=== PATIENT | male | born 1995 ===

== ENCOUNTER 2019-05-08 18:20 | Emergency (ER) | payer SELFPAY ==
[~2019-05-08] VITALS: Ht 182.9 cm; Wt 123.6 kg
[2019-05-08] MEDS ORDERED: ASPIRIN 325 MG TABLET PO ONE (18:45)
[2019-05-08] MEDS ORDERED: LIDO:MAALOX 1:1 20 ML SINGLE DOSE. SWSW ONE (18:45)
[2019-05-08 18:59] LABS: BASO # 0.1 x10^3/uL (0.0-0.2); BASO % 0 % (0-3); EOS % 0 % (0-3); HEMATOCRIT 46.9 % (39.0-53.0); HEMOGLOBIN 16.4 g/dL (13.0-17.5); LYMPH # 2.1 x10^3/uL (1.0-4.8); LYMPH % 12 % (24-48); MEAN CORPUSCULAR HEMOGLOBIN 30 pg (25-35); MEAN CORPUSCULAR HGB CONC 35 g/dL (31-37); MEAN CORPUSCULAR VOLUME 86 fL (79-100); MONO # 1.5 x10^3/uL (0.0-1.1); MONO % 9 % (0-9); NEUT # 13.3 x10^3/uL (1.8-7.7); NEUT % 78 % (31-73); PLATELET COUNT 355 x10^3/uL (140-400); RED BLOOD COUNT 5.44 x10^6/uL (4.30-5.70); RED CELL DISTRIBUTION WIDTH 13.4 % (11.5-14.5)
[2019-05-08 19:00] LABS: BILIRUBIN,URINE NEGATIVE (NEG); CLARITY,URINE CLOUDY; COLOR,URINE YELLOW; NITRITE,URINE NEGATIVE (NEG); PROTEIN,URINE 30 mg/dL (NEG-TRACE); UROBILINOGEN,URINE 0.2 mg/dL (0.2 mg/dL)
[2019-05-08 19:07] LABS: BARBITURATES NEG (NEG); BENZODIAZEPINES NEG (NEG); CANNABINOIDS POS (NEG); COCAINE NEG (NEG); METHADONE NEG (NEG); OPIATES NEG (NEG); PHENCYCLIDINE NEG (NEG)
[2019-05-08 19:10] LABS: BACTERIA,URINE FEW /HPF (0-FEW); RBC,URINE 0 /HPF (0-2); SQUAMOUS EPITHELIAL CELL,UR OCC /LPF
[2019-05-08 19:11] LABS: CALCIUM 8.8 mg/dL (8.5-10.1); CREATININE 1.1 mg/dL (0.7-1.3); GFR 83.7; POTASSIUM 4.1 mmol/L (3.5-5.1)
--- NOTE | 2019-05-08 19:13 | RAD ---
Single view chest dated 05/08/2019: No comparison available. Clinical Indication: Chest pain. Findings: Single upright portable exam of the chest was performed. Heart size and mediastinal contours are within normal limits given technique. The lungs are clear without evidence of focal consolidation. Vascular interstitium is within normal limits. Impression:: Negative portable chest. Electronically signed by: Jose Jiang MD (05/08/2019 7:10 PM) [id number]
[2019-05-08 19:16] LABS: SALIC < 2.8 mg/dL (2.8-20.0)
[2019-05-08 19:16] LABS: AMPHETAMINE/METHAMPHETAMINE NEG (NEG)
[2019-05-08 19:17] LABS: ACETAMIN < 2 mcg/ml (10-30); ALBUMIN 3.5 g/dL (3.4-5.0); ALBUMIN/GLOBULIN RATIO 1.1 (1.0-1.7); ETHANOL < 10 mg/dL (0-10); MAGNESIUM 1.9 mg/dL (1.8-2.4); TOTAL BILIRUBIN 0.3 mg/dL (0.2-1.0); TOTAL PROTEIN 6.6 g/dL (6.4-8.2)
[2019-05-08] MEDS ORDERED: IOHEXOL 300 MG/ML 100ML VIAL. IV ONE (19:30)
[2019-05-08] MEDS ORDERED: CONTRAST GIVEN. MC PRN (19:30)
[2019-05-08 19:51] LABS: % BANDS 1 % (0-9); % EOS 1 % (0-5)
[2019-05-08 19:52] LABS: % LYMPHS 13 % (24-48); % MONOS 8 % (0-10); % SEGS 77 % (35-66); PLT ESTIMATE ADEQUATE (ADEQUATE)
--- NOTE | 2019-05-08 20:07 | RAD ---
INDICATION: Abdomen pain COMPARISON: None. TECHNIQUE: Axial CT images obtained through the abdomen and pelvis with contrast. One or more of the following individualized dose reduction techniques were utilized for this examination: 1. Automated exposure control; 2. Adjustment of the mA and/or kV according to patient size; 3. Use of iterative reconstruction technique. FINDINGS: Partially visualized nodular opacity right lung base measuring 6 mm but only partially seen and therefore likely not accurate measurement. Abdominal aorta not aneurysmal. Fat-containing umbilical hernia. No intrahepatic bile duct dilation. No peripancreatic fluid collection. Spleen unremarkable. No hydronephrosis. Urinary bladder is decompressed. The descending colon is located on the left side of the abdomen with the appendix seen within the pelvis without adjacent inflammatory changes. This could be secondary to a congenital rotation anomaly. IMPRESSION: * No evidence of bowel obstruction or appendicitis. * Partial visualization of a nodular opacity at the right lung base. Most commonly secondary to nodular atelectasis, infectious or inflammatory causes in a patient of this age. 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 No evidence of associated obstruction. Electronically signed by: Genaro Bernstein MD (05/08/2019 8:04 PM) [id number]
--- NOTE | 2019-05-08 20:57 | PHYS DOC ---
Past Medical History Past Medical History: No Pertinent History (JOSE PANTOJA APRN) Past Surgical History: No Surgical History (JOSE PANTOJA APRN) Smoking Status: Current Every Day Smoker Additional Information: 1 PPD Alcohol Use: None Social History Narrative: [employer]REET [employer]" (JOSE PANTOJA APRN) Attending Signature I have participated in the care of this patient and I have reviewed and agree with all pertinent clinical information above including history, exam, and recommendations. (SHERRY MONTGOMERY MD) Adult General Chief Complaint Chief Complaint: ABDOMINAL PAIN HPI HPI Patient is a 24 year old male with history of drug abuse who presents to the ED today complaining of 4 out of 10 generalized chest pain as well as generalized abdominal pain described as sharp and intermittent, symptoms began an hour after snorting street fentanyl. Patient reports this heartbeat is been chronic. Denies any exacerbating or relieving factors to his symptoms. He was at the [facility] when symptoms began (JOSE PANTOJA APRN) Review of Systems Review of Systems Constitutional: Denies fever or chills [] Eyes: Denies change in visual acuity, redness, or eye pain [] HENT: Denies nasal congestion or sore throat [] Respiratory: Denies cough or shortness of breath [] Cardiovascular: Reports chest pain GI: Reports abdominal pain, denies nausea, vomiting, bloody stools or diarrhea [] : Denies dysuria or hematuria [] Musculoskeletal: Denies back pain or joint pain [] Integument: Denies rash or skin lesions [] Neurologic: Denies headache, focal weakness or sensory changes [] All other systems were reviewed and found to be within normal limits, except as documented in this note. (JOSE PANTOJA APRN) Current Medications Current Medications Current Medications Medications (Trade) Dose Ordered Sig/Luz Elena Start Time Stop Time Status Last Admin Dose Admin Aspirin (Bee Aspirin) 325 mg 1X ONCE 05/08/19 18:45 05/08/19 18:46 DC 05/08/19 18:50 325 MG Info (CONTRAST GIVEN -- Rx MONITORING) 1 each PRN DAILY PRN 05/08/19 19:30 05/08/19 21:53 DC Iohexol (Omnipaque 300 Mg/ml) 75 ml 1X ONCE 05/08/19 19:30 05/08/19 19:31 DC 05/08/19 19:34 75 ML Multi-Ingredient Mouthwash/Gargle (Gi Cocktail) 20 ml 1X ONCE 05/08/19 18:45 05/08/19 18:46 DC 05/08/19 18:50 20 ML (SHERRY MONTGOMERY MD) Allergies Allergies Allergies Coded Allergies Type Severity Reaction Last Updated Verified No Known Drug Allergies 05/08/19 No (SHERRY MONTGOMERY MD) Physical Exam Physical Exam Constitutional: Well developed, well nourished, no acute distress, non-toxic appearance. [] HENT: Normocephalic, atraumatic, bilateral external ears normal, oropharynx moist, no oral exudates, nose normal. [] Eyes: PERRLA, EOMI, conjunctiva normal, no discharge. [] Neck: Normal range of motion, no tenderness, supple, no stridor. [] Cardiovascular:Heart rate regular rhythm, no murmur [] Lungs & Thorax: Bilateral breath sounds clear to auscultation [] Abdomen: Bowel sounds normal, soft, no tenderness, no masses, no pulsatile masses. [] Skin: Warm, dry, no erythema, no rash. [] Back: No tenderness, no CVA tenderness. [] Extremities: No tenderness, no cyanosis, no clubbing, ROM intact, no edema. [] Neurologic: Alert and oriented X 3, normal motor function, normal sensory function, no focal deficits noted. [] Psychologic: Affect normal, judgement normal, mood normal. [] (JOSE PANTOJA APRN) Current Patient Data Vital Signs Vital Signs Date Time Temp Pulse Resp B/P (MAP) Pulse Ox O2 Delivery O2 Flow Rate FiO2 05/08/19 21:44 102 24 140/93 (109) 97 Room Air 05/08/19 18:25 98.7 98.7 (SHERRY MONTGOMERY MD) Lab Values Laboratory Tests Test 05/08/19 18:30 05/08/19 18:50 White Blood Count 17.0 x10^3/uL (4.0-11.0) H Red Blood Count 5.44 x10^6/uL (4.30-5.70) Hemoglobin 16.4 g/dL (13.0-17.5) Hematocrit 46.9 % (39.0-53.0) Mean Corpuscular Volume 86 fL (79-100) Mean Corpuscular Hemoglobin 30 pg (25-35) Mean Corpuscular Hemoglobin Concent 35 g/dL (31-37) Red Cell Distribution Width 13.4 % (11.5-14.5) Platelet Count 355 x10^3/uL (140-400) Neutrophils (%) (Auto) 78 % (31-73) H Lymphocytes (%) (Auto) 12 % (24-48) L Monocytes (%) (Auto) 9 % (0-9) Eosinophils (%) (Auto) 0 % (0-3) Basophils (%) (Auto) 0 % (0-3) Neutrophils # (Auto) 13.3 x10^3/uL (1.8-7.7) H Lymphocytes # (Auto) 2.1 x10^3/uL (1.0-4.8) Monocytes # (Auto) 1.5 x10^3/uL (0.0-1.1) H Eosinophils # (Auto) 0.0 x10^3/uL (0.0-0.7) Basophils # (Auto) 0.1 x10^3/uL (0.0-0.2) Segmented Neutrophils % 77 % (35-66) H Band Neutrophils % 1 % (0-9) Lymphocytes % 13 % (24-48) L Monocytes % 8 % (0-10) Eosinophils % 1 % (0-5) Platelet Estimate Adequate (ADEQUATE) Sodium Level 142 mmol/L (136-145) Potassium Level 4.1 mmol/L (3.5-5.1) Chloride Level 103 mmol/L (98-107) Carbon Dioxide Level 29 mmol/L (21-32) Anion Gap 10 (6-14) Blood Urea Nitrogen 11 mg/dL (8-26) Creatinine 1.1 mg/dL (0.7-1.3) Estimated GFR (Cockcroft-Gault) 83.7 BUN/Creatinine Ratio 10 (6-20) Glucose Level 77 mg/dL (70-99) Calcium Level 8.8 mg/dL (8.5-10.1) Magnesium Level 1.9 mg/dL (1.8-2.4) Total Bilirubin 0.3 mg/dL (0.2-1.0) Aspartate Amino Transferase (AST) 18 U/L (15-37) Alanine Aminotransferase (ALT) 31 U/L (16-63) Alkaline Phosphatase 74 U/L (46-116) Creatine Kinase 136 U/L (39-308) Creatine Kinase MB (Mass) 0.6 ng/mL (0.0-3.6) Creatine Kinase MB Relative Index 0.4 % (0-4) Troponin I Quantitative < 0.017 ng/mL (0.000-0.055) YE-Hqu-Z-Type Natriuretic Peptide 45 pg/mL (0-124) Total Protein 6.6 g/dL (6.4-8.2) Albumin 3.5 g/dL (3.4-5.0) Albumin/Globulin Ratio 1.1 (1.0-1.7) Lipase 124 U/L (73-393) Thyroid Stimulating Hormone (TSH) 1.189 uIU/mL (0.358-3.74) Salicylates Level < 2.8 mg/dL (2.8-20.0) L Salicylate Last Dose Date Salicylate Last Dose Time Acetaminophen Level < 2 mcg/ml (10-30) L Acetaminophen Last Dose Date Acetaminophen Last Dose Time Ethyl Alcohol Level < 10 mg/dL (0-10) Urine Collection Type Unknown Urine Color Yellow Urine Clarity Cloudy Urine pH 6.0 (<5.0-8.0) Urine Specific [place] >=1.030 (1.000-1.030) Urine Protein 30 mg/dL (NEG-TRACE) Urine Glucose (UA) Negative mg/dL (NEG) Urine Ketones (Stick) Trace mg/dL (NEG) Urine Blood Negative (NEG) Urine Nitrite Negative (NEG) Urine Bilirubin Negative (NEG) Urine Urobilinogen Dipstick 0.2 mg/dL (0.2 mg/dL) Urine Leukocyte Esterase Small (NEG) Urine RBC 0 /HPF (0-2) Urine WBC 11-20 /HPF (0-4) Urine Squamous Epithelial Cells Occ /LPF Urine Bacteria Few /HPF (0-FEW) Urine Mucus Marked /LPF Urine Opiates Screen Neg (NEG) Urine Methadone Screen Neg (NEG) Urine Barbiturates Neg (NEG) Urine Phencyclidine Screen Neg (NEG) Urine Amphetamine/Methamphetamine Neg (NEG) Urine Benzodiazepines Screen Neg (NEG) Urine Cocaine Screen Neg (NEG) Urine Cannabinoids Screen Pos (NEG) Urine Ethyl Alcohol Neg (NEG) Laboratory Tests 05/08/19 18:30 Laboratory Tests 05/08/19 18:30 (SHERRY MONTGOMERY MD) EKG EKG [address] Montgomery sinus tachycardia HR 106 no STEMI[] (JOSE PANTOJA APRN) Radiology/Procedures Radiology/Procedures []PROCEDURE: CT ABD PELV W/ IV CONTRST ONLY INDICATION: Abdomen pain COMPARISON: None. TECHNIQUE: Axial CT images obtained through the abdomen and pelvis with contrast. One or more of the following individualized dose reduction techniques were utilized for this examination: 1. Automated exposure control; 2. Adjustment of the mA and/or kV according to patient size; 3. Use of iterative reconstruction technique. FINDINGS: Partially visualized nodular opacity right lung base measuring 6 mm but only partially seen and therefore likely not accurate measurement. Abdominal aorta not aneurysmal. Fat-containing umbilical hernia. No intrahepatic bile duct dilation. No peripancreatic fluid collection. Spleen unremarkable. No hydronephrosis. Urinary bladder is decompressed. The descending colon is located on the left side of the abdomen with the appendix seen within the pelvis without adjacent inflammatory changes. This could be secondary to a congenital rotation anomaly. IMPRESSION: * No evidence of bowel obstruction or appendicitis. * Partial visualization of a nodular opacity at the right lung base. Most commonly secondary to nodular atelectasis, infectious or inflammatory causes in a patient of this age. 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 No evidence of associated obstruction. Electronically signed by: Freya Bethea MD (05/08/2019 8:04 PM) [id number] DICTATED and SIGNED BY: FREYA BETHEA MD DATE: 05/08/192003 PROCEDURE: PORTABLE CHEST 1V Single view chest dated 05/08/2019: No comparison available. Clinical Indication: Chest pain. Findings: Single upright portable exam of the chest was performed. Heart size and mediastinal contours are within normal limits given technique. The lungs are clear without evidence of focal consolidation. Vascular interstitium is within normal limits. Impression:: Negative portable chest. Electronically signed by: Jose Jiang MD (05/08/2019 7:10 PM) [id number] DICTATED and SIGNED BY: JOSE JIANG MD DATE: 05/08/19 191 (JOSE PANTOJA APRN) Course & Med Decision Making Course & Med Decision Making Pertinent Labs and Imaging studies reviewed. (See chart for details) This is a 24-year-old male patient [place] be evaluated for chest pain and abdominal pain that began an hour after snorting street fentanyl. EKG noted for tachycardia with heart rate at 106. CBC with a WBC of 17.1, CMP with no acute findings, troponin is normal drug screen positive for marijuana only. It is questionable what patient has been using considering he has no opiates in his system. Noted for marijuana in his urine. Patient requesting help with drug use. Amaury from the PAT team came and talked to patient-he reports this patient spends at thousand dollars per week on street drugs for the last 1 year. He states after discussion with patient on contact with [facility], they will call patient tomorrow and set up a follow-up appointment. Patient was discharged to home. (JOSE PANTOJA APRN) Dragon Disclaimer Dragon Disclaimer This electronic medical record was generated, in whole or in part, using a voice recognition dictation system. (JOSE PANTOJA APRN) Departure Departure Impression: Primary Impression: Drug abuse Additional Impressions: Chest pain Abdominal pain Disposition: HOME, SELF-CARE Condition: STABLE Referrals: NO PCP (PCP) Patient Instructions: Drug Abuse, FAQs Problem Qualifiers Additional Impressions: Chest pain Chest pain type: unspecified Qualified Codes: R07.9 - Chest pain, unspecified Abdominal pain Abdominal location: generalized Qualified Codes: R10.84 - Generalized abdominal pain JOSE PANTOJA APRN May 08, 2019 20:57 SHERRY MONTGOMERY MD May 08, 2019 23:20
[2019-05-08 21:44] VITALS: BP 140/93
--- NOTE | 2019-05-09 06:00 | EKG ---
[facility] [address] [place] [address] Test Date: 2019-05-08 Test Time: 18:35:46 Pat Name: KHALIDA AMATO Department: Room: Gender: M [employer]: : 1995 Requested By: JSOE PANTOJA Order Number: [id number] Reading MD: Measurements Intervals [employer] Rate: 105 P: 39 SC: 140 QRS: -10 QRSD: 78 T: 47 QT: 322 QTc: 429 Interpretive Statements SINUS TACHYCARDIA LEFTWARD AXIS OTHERWISE NORMAL ECG No previous ECG available for comparison
== END 2019-05-08 21:45 | disposition home or self-care (01) ==
LOC: ER 18:20
DX: R07.89 Other chest pain (principal); R10.84 Generalized abdominal pain; F12.10 Cannabis abuse, uncomplicated; F17.200 Nicotine dependence, unspecified, uncomplicated
CPT/HCPCS: 36415; 71045; 74177; 80053; 80307; 80329; 81001; 82553; 83690; 83735; 83880; 84443; 84484; 85007; 85025; 93005; 99285; G0480; Q9967